=== PATIENT | female | born 1970 | race Caucasian/White ===

== ENCOUNTER 2021-08-29 13:17 | Observation (INO) | payer BC ==
[2021-11-06] MEDS ORDERED: MEFOXIN 2 GM PREMIX** 2 GM/50 ML ML IV SCH (07:00)
[2021-11-06] MEDS ORDERED: Lactated Ringers 1,000 ML IV SCH (07:00)
[2021-11-06 07:27] LABS: Absolute Neutrophil Ct (ANC) 4.02 x10^3/uL (1.4-6.9); Basophil (Absolute #) 0.05 x10^3/uL (0-0.4); Eosinophil % 2.9 % (0.00-5.0); Eosinophil (Absolute #) 0.22 x10^3/uL (0-0.5); Hematocrit 39.1 % (35-47); Hemoglobin 12.9 g/dL (12.0-16.0); Lymphocyte (Absolute #) 2.44 x10^3/uL (1.0-4.6); Lymphocytes % 32.7 % (24.0-44.0); Mean Cell Volume 94.2 fL (78-100); Mean Corpuscular Hemoglobin 31.1 pg (26-32); Mean Platelet Volume 9.3 fL (7.5-11.0); Monocytes % 9.4 % (0.0-12.0); Neutrophil % 53.9 % (36.0-66.0); Platelet Count 312 x10^3/uL (150-450); Red Blood Count 4.15 x10^6/uL (4.1-5.4); Red Cell Distribution Width 12.1 % (11.5-14.0); White Blood Count 7.5 x10^3/uL (4.0-10.5)
[2021-11-06 07:37] LABS: ALBUMIN 3.8 g/dL (3.5-5.0); ALKALINE PHOSPHATASE 81 U/L (38-126); ANION GAP 11.1 MEQ/L (5-15); BLOOD UREA NITROGEN 13 mg/dL (7-17); CHLORIDE 107 mmol/L (98-107); Calcium 8.8 mg/dL (8.4-10.2); Carbon Dioxide 24 mmol/L (22-30); Creatinine 1 0.61 mg/dL (0.52-1.04); EST GLOMERULAR FILTRATION RATE > 60.0 ML/MIN; Glucose 102 mg/dL (74-106); Potassium 4.1 mmol/L (3.5-5.1); SGOT/AST 23 U/L (14-36); SGPT/ALT 18 U/L (0-35); SODIUM 138 mmol/L (137-145); Total Protein 6.6 g/dL (6.3-8.2)
[2021-11-06] MEDS ORDERED: Versed 2 MG/2 ML Injection IV PRN (08:05)
[2021-11-06 08:06] LABS: INFLUENZA A NEGATIVE (NEGATIVE); INFLUENZA B NEGATIVE (NEGATIVE); RESPIRATORY SYNCTIAL VIRUS NEGATIVE (Negative); SARS-CoV-2 Xpert Express NEGATIVE (NEGATIVE)
[2021-11-06 08:31] LABS: ABO TYPING O; Antibody Screen NEGATIVE (NEGATIVE); RH TYPING POSITIVE
[2021-11-06] MEDS ORDERED: SUBLIMAZE 100 MCG/2 ML ONE (11:24)
[2021-11-06] MEDS ORDERED: Zofran 4 MG/2 ML VIAL IV PRN (12:34)
[2021-11-06] MEDS ORDERED: TORAdol 30 mg Injection IV PRN (12:36)
[2021-11-06] MEDS: DILAUDID 1 MG/1ML PCA IV PRN (13:06)
[2021-11-06] MEDS: Mylicon 80MG PO SCH ×2 (14:26→21:48)
[2021-11-06] MEDS: MEFOXIN 2 GM PREMIX** 2 GM/50 ML ML IV SCH ×2 (14:27→19:34)
[2021-11-06] MEDS: Reglan 10 MG/2 ML IV SCH ×2 (14:27→21:48)
[2021-11-06 15:12] LABS: Dipstick done @ ? MAIN LAB
[2021-11-06 15:14] LABS: Appearance CLEAR (CLEAR); Bacteria RARE /HPF (NEGATIVE); Bilirubin NEGATIVE (NEGATIVE); Glucose NEGATIVE (NEGATIVE); Ketones NEGATIVE (NEGATIVE); Nitrite NEGATIVE (NEGATIVE); Ph 7.5 (5-6); Protein,Urine Dip NEGATIVE (Negative); RBC TRACE-INTACT Ery/ul (0-5); Urobilinogen 0.2 mg/dL (0-1); WBC 0-2 /HPF (0-5)
[2021-11-06] MEDS: NON-FORMULARY ITEM PO SCH (19:21)
[2021-11-06 20:32] LABS: Absolute Neutrophil Ct (ANC) 16.51 x10^3/uL (1.4-6.9); Basophil (Absolute #) 0.02 x10^3/uL (0-0.4); Eosinophil (Absolute #) 0 x10^3/uL (0-0.5); Hematocrit 38.8 % (35-47); Hemoglobin 12.6 g/dL (12.0-16.0); Lymphocyte (Absolute #) 0.82 x10^3/uL (1.0-4.6); Lymphocytes % 4.5 % (24.0-44.0); Mean Cell Volume 94.4 fL (78-100); Mean Corpuscular Hemoglobin 30.7 pg (26-32); Mean Corpuscular Hgb Concent. 32.5 g/dL (32-36); Mean Platelet Volume 9.5 fL (7.5-11.0); Monocyte (Absolute #) 0.61 x10^3/uL (0.0-1.3); Monocytes % 3.4 % (0.0-12.0); Neutrophil % 91.6 % (36.0-66.0); Platelet Count 322 x10^3/uL (150-450); Red Blood Count 4.11 x10^6/uL (4.1-5.4); Red Cell Distribution Width 12.1 % (11.5-14.0)
[2021-11-06] MEDS: Lactated Ringers 1,000 ML IV SCH ×2 (21:24→21:39)
[2021-11-06] MEDS: Docusate Sodium 100 MG PO SCH (21:48)
[2021-11-07] MEDS: MEFOXIN 2 GM PREMIX** 2 GM/50 ML ML IV SCH (02:02)
[2021-11-07] MEDS: Lactated Ringers 1,000 ML IV SCH (04:43)
[2021-11-07 05:13] LABS: Hematocrit 35.9 % (35-47); Hemoglobin 11.8 g/dL (12.0-16.0); Mean Cell Volume 94.7 fL (78-100); Mean Corpuscular Hemoglobin 31.1 pg (26-32); Mean Corpuscular Hgb Concent. 32.9 g/dL (32-36); Mean Platelet Volume 9.9 fL (7.5-11.0); Platelet Count 304 x10^3/uL (150-450); Red Blood Count 3.79 x10^6/uL (4.1-5.4); Red Cell Distribution Width 12.1 % (11.5-14.0); White Blood Count 22.2 x10^3/uL (4.0-10.5)
[2021-11-07 05:20] VITALS: O2SAT 97
[2021-11-07 06:21] LABS: ALKALINE PHOSPHATASE 74 U/L (38-126); ANION GAP 8.7 MEQ/L (5-15); BLOOD UREA NITROGEN 8 mg/dL (7-17); CHLORIDE 107 mmol/L (98-107); Calcium 8.4 mg/dL (8.4-10.2); Carbon Dioxide 26 mmol/L (22-30); Creatinine 1 0.58 mg/dL (0.52-1.04); EST GLOMERULAR FILTRATION RATE > 60.0 ML/MIN; Glucose 119 mg/dL (74-106); Potassium 4.3 mmol/L (3.5-5.1); SGOT/AST 23 U/L (14-36); SGPT/ALT 15 U/L (0-35); SODIUM 137 mmol/L (137-145); Total Protein 5.7 g/dL (6.3-8.2)
[2021-11-07 07:10] VITALS: BP 110/58; PULSE 66
--- NOTE | 2021-11-07 07:26 | PCM.NOTE ---
Date and Time: 11/07/21723 Subjective Assessment: pod 1 sp lavh anterior repair pt resting in bed tolerating diet and ambulating well vss afebrile abd; soft incision c/d/intact pelvic; vaginal packing removed with minimal soiling ext; no clubbing cyanosis or edema hgb; 11.8 a/p sp lavh anterior repair leukocytosis dc home today will repeat cbc at 10 am today OBJECTIVE DATA Vital Signs: Vital Signs - 24 hr Temp Pulse Resp BP Pulse Ox 11/07/21 07:10 97.3 F 66 18 110/58 97 11/07/21 05:07 16 97 11/07/21 03:09 96.7 F 64 16 109/56 99 11/06/21 23:36 97.4 F 67 16 118/59 99 11/06/21 21:06 16 11/06/21 19:36 97.9 F 69 16 115/59 97 11/06/21 16:09 98.0 F 74 16 113/55 95 11/06/21 14:58 86 16 119/57 96 11/06/21 14:00 75 16 117/56 99 11/06/21 13:19 97.9 F 64 16 117/58 99 11/06/21 13:06 18 99 11/06/21 13:00 97.9 F 65 16 127/60 99 11/06/21 12:18 97.1 F 63 18 132/67 100 11/06/21 07:36 98.3 F 75 18 132/87 98 Pain Assessment - Last Documented Pain Intensity 2 Intake and Output: Intake & Output 11/04/21 11/05/21 11/06/21 11/07/21 11:59 11:59 11:59 11:59 Intake Total 25 3330 Output Total 400 2300 Balance -375 1030 Weight 83.5 kg 86.8 kg Lab Results: Lab Results-Last 24 Hours 11/06/21 11/06/21 11/06/21 Range/Units 07:25 07:25 07:25 WBC 7.5 (4.0-10.5) x10^3/uL RBC 4.15 (4.1-5.4) x10^6/uL Hgb 12.9 (12.0-16.0) g/dL Hct 39.1 (35-47) % MCV 94.2 (78-100) fL MCH 31.1 (26-32) pg MCHC 33.0 (32-36) g/dL RDW 12.1 (11.5-14.0) % Plt Count 312 (150-450) x10^3/uL MPV 9.3 (7.5-11.0) fL Gran % 53.9 (36.0-66.0) % Immature Gran % (Auto) 0.4 (0.00-0.4) % Nucleat RBC Rel Count 0.0 (0.00-0.1) % Eos # (Auto) 0.22 (0-0.5) x10^3/uL Immature Gran # (Auto) 0.03 (0.00-0.03) x10^3u/L Absolute Lymphs (auto) 2.44 (1.0-4.6) x10^3/uL Absolute Monos (auto) 0.70 (0.0-1.3) x10^3/uL Absolute Nucleated RBC 0.00 (0.00-0.01) x10^3u/L Lymphocytes % 32.7 (24.0-44.0) % Monocytes % 9.4 (0.0-12.0) % Eosinophils % 2.9 (0.00-5.0) % Basophils % 0.7 (0.0-0.4) % Absolute Granulocytes 4.02 (1.4-6.9) x10^3/uL Basophils # 0.05 (0-0.4) x10^3/uL Sodium 138 (137-145) mmol/L Potassium 4.1 (3.5-5.1) mmol/L Chloride 107 (98-107) mmol/L Carbon Dioxide 24 (22-30) mmol/L Anion Gap 11.1 (5-15) MEQ/L BUN 13 (7-17) mg/dL Creatinine 0.61 (0.52-1.04) mg/dL Estimated GFR > 60.0 ML/MIN Glucose 102 (74-106) mg/dL Calcium 8.8 (8.4-10.2) mg/dL Total Bilirubin 0.30 (0.2-1.3) mg/dL AST 23 (14-36) U/L ALT 18 (0-35) U/L Alkaline Phosphatase 81 (38-126) U/L Serum Total Protein 6.6 (6.3-8.2) g/dL Albumin 3.8 (3.5-5.0) g/dL Serum , Qual NEGATIVE (Negative) Urinalys Dipstick Clnc Urine Color (YELLOW) Urine Appearance (CLEAR) Urine pH (5-6) Ur Specific [place] (1.005-1.025) POC Urine Protein Conf (Negative) Urine Ketones (NEGATIVE) Urine Nitrite (NEGATIVE) Urine Bilirubin (NEGATIVE) Urine Urobilinogen (0-1) mg/dL Urine Leukocytes (NEGATIVE) Urine WBC (Auto) (0-5) /HPF Urine RBC (Auto) (0-2) /HPF U Epithel Cells (Auto) (FEW) /HPF Urine Bacteria (Auto) (NEGATIVE) /HPF Urine RBC (0-5) Raffy/ul Urine Glucose (NEGATIVE) mg/dL Influenza Type A Ag (NEGATIVE) Influenza Type B Ag (NEGATIVE) RSV (PCR) (Negative) SARS-CoV-2 (PCR) (NEGATIVE) ABO Group Rh Factor Antibody Screen (NEGATIVE) 11/06/21 11/06/21 11/06/21 Range/Units 07:25 07:25 09:32 WBC (4.0-10.5) x10^3/uL RBC (4.1-5.4) x10^6/uL Hgb (12.0-16.0) g/dL Hct (35-47) % MCV (78-100) fL MCH (26-32) pg MCHC (32-36) g/dL RDW (11.5-14.0) % Plt Count (150-450) x10^3/uL MPV (7.5-11.0) fL Gran % (36.0-66.0) % Immature Gran % (Auto) (0.00-0.4) % Nucleat RBC Rel Count (0.00-0.1) % Eos # (Auto) (0-0.5) x10^3/uL Immature Gran # (Auto) (0.00-0.03) x10^3u/L Absolute Lymphs (auto) (1.0-4.6) x10^3/uL Absolute Monos (auto) (0.0-1.3) x10^3/uL Absolute Nucleated RBC (0.00-0.01) x10^3u/L Lymphocytes % (24.0-44.0) % Monocytes % (0.0-12.0) % Eosinophils % (0.00-5.0) % Basophils % (0.0-0.4) % Absolute Granulocytes (1.4-6.9) x10^3/uL Basophils # (0-0.4) x10^3/uL Sodium (137-145) mmol/L Potassium (3.5-5.1) mmol/L Chloride (98-107) mmol/L Carbon Dioxide (22-30) mmol/L Anion Gap (5-15) MEQ/L BUN (7-17) mg/dL Creatinine (0.52-1.04) mg/dL Estimated GFR ML/MIN Glucose (74-106) mg/dL Calcium (8.4-10.2) mg/dL Total Bilirubin (0.2-1.3) mg/dL AST (14-36) U/L ALT (0-35) U/L Alkaline Phosphatase (38-126) U/L Serum Total Protein (6.3-8.2) g/dL Albumin (3.5-5.0) g/dL Serum , Qual (Negative) Urinalys Dipstick Clnc MAIN LAB Urine Color YELLOW (YELLOW) Urine Appearance CLEAR (CLEAR) Urine pH 7.5 (5-6) Ur Specific [place] 1.020 (1.005-1.025) POC Urine Protein Conf NEGATIVE (Negative) Urine Ketones NEGATIVE (NEGATIVE) Urine Nitrite NEGATIVE (NEGATIVE) Urine Bilirubin NEGATIVE (NEGATIVE) Urine Urobilinogen 0.2 (0-1) mg/dL Urine Leukocytes NEGATIVE (NEGATIVE) Urine WBC (Auto) 0-2 (0-5) /HPF Urine RBC (Auto) 6-10 (0-2) /HPF U Epithel Cells (Auto) NONE (FEW) /HPF Urine Bacteria (Auto) RARE (NEGATIVE) /HPF Urine RBC TRACE-INTACT (0-5) Raffy/ul Urine Glucose NEGATIVE (NEGATIVE) mg/dL Influenza Type A Ag NEGATIVE (NEGATIVE) Influenza Type B Ag NEGATIVE (NEGATIVE) RSV (PCR) NEGATIVE (Negative) SARS-CoV-2 (PCR) NEGATIVE (NEGATIVE) ABO Group O Rh Factor POSITIVE Antibody Screen NEGATIVE (NEGATIVE) 07/11/07/21 11/07/21 Range/Units 20:10 05:15 05:15 WBC 18.0 H 22.2 H (4.0-10.5) x10^3/uL RBC 4.11 3.79 L (4.1-5.4) x10^6/uL Hgb 12.6 11.8 L (12.0-16.0) g/dL Hct 38.8 35.9 (35-47) % MCV 94.4 94.7 (78-100) fL MCH 30.7 31.1 (26-32) pg MCHC 32.5 32.9 (32-36) g/dL RDW 12.1 12.1 (11.5-14.0) % Plt Count 322 304 (150-450) x10^3/uL MPV 9.5 9.9 (7.5-11.0) fL Gran % 91.6 H (36.0-66.0) % Immature Gran % (Auto) 0.4 (0.00-0.4) % Nucleat RBC Rel Count 0.0 (0.00-0.1) % Eos # (Auto) 0 (0-0.5) x10^3/uL Immature Gran # (Auto) 0.08 H (0.00-0.03) x10^3u/L Absolute Lymphs (auto) 0.82 L (1.0-4.6) x10^3/uL Absolute Monos (auto) 0.61 (0.0-1.3) x10^3/uL Absolute Nucleated RBC 0.00 (0.00-0.01) x10^3u/L Lymphocytes % 4.5 L (24.0-44.0) % Monocytes % 3.4 (0.0-12.0) % Eosinophils % 0.0 (0.00-5.0) % Basophils % 0.1 (0.0-0.4) % Absolute Granulocytes 16.51 H (1.4-6.9) x10^3/uL Basophils # 0.02 (0-0.4) x10^3/uL Sodium 137 (137-145) mmol/L Potassium 4.3 (3.5-5.1) mmol/L Chloride 107 (98-107) mmol/L Carbon Dioxide 26 (22-30) mmol/L Anion Gap 8.7 (5-15) MEQ/L BUN 8 (7-17) mg/dL Creatinine 0.58 (0.52-1.04) mg/dL Estimated GFR > 60.0 ML/MIN Glucose 119 H (74-106) mg/dL Calcium 8.4 (8.4-10.2) mg/dL Total Bilirubin 0.20 (0.2-1.3) mg/dL AST 23 (14-36) U/L ALT 15 (0-35) U/L Alkaline Phosphatase 74 (38-126) U/L Serum Total Protein 5.7 L (6.3-8.2) g/dL Albumin 3.0 L (3.5-5.0) g/dL Serum , Qual (Negative) Urinalys Dipstick Clnc Urine Color (YELLOW) Urine Appearance (CLEAR) Urine pH (5-6) Ur Specific [place] (1.005-1.025) POC Urine Protein Conf (Negative) Urine Ketones (NEGATIVE) Urine Nitrite (NEGATIVE) Urine Bilirubin (NEGATIVE) Urine Urobilinogen (0-1) mg/dL Urine Leukocytes (NEGATIVE) Urine WBC (Auto) (0-5) /HPF Urine RBC (Auto) (0-2) /HPF U Epithel Cells (Auto) (FEW) /HPF Urine Bacteria (Auto) (NEGATIVE) /HPF Urine RBC (0-5) Raffy/ul Urine Glucose (NEGATIVE) mg/dL Influenza Type A Ag (NEGATIVE) Influenza Type B Ag (NEGATIVE) RSV (PCR) (Negative) SARS-CoV-2 (PCR) (NEGATIVE) ABO Group Rh Factor Antibody Screen (NEGATIVE) Assessment/Plan (1) S/P laparoscopic assisted vaginal hysterectomy (LAVH) Current Visit: Yes Status: Acute Code(s): Z90.710 - ACQUIRED ABSENCE OF BOTH CERVIX AND UTERUS (2) Status post anterior colporrhaphy Current Visit: Yes Status: Acute Code(s): Z98.890 - OTHER SPECIFIED POSTPROCEDURAL STATES
--- NOTE | 2021-11-07 07:35 | PCM.DS ---
Discharge Summary Date of Admission: 11/06/21 06:52 Admitting Physician: PRATIMA TIRADO DO Primary Care Provider: MURPHY CROOKS Allergies Allergies No Known Drug Allergies Allergy (Verified 11/06/21 07:09) Hospital Summary - Hospital Course Hospital Course: pt admitted on november 06 for undergoing lavh anterior repair secondary to cystocele, severe dysplasia, and uterine prolapse and underwent procedure without complication. during postop period did well with stable hgb at 11.8. pt at this time stable for discharge with fu in office in 2 wks for postop evaluation. pt able to ambulate and tolerate diet. all questions answered to her satisfaction and was given norco for pain management and augmentin bid 5 days for prophylaxis. - Vitals & Intake/Output Vital Signs: Vital Signs Temperature 97.3 F 11/07/21 07:10 Pulse Rate 66 11/07/21 07:10 Respiratory Rate 18 11/07/21 07:10 Blood Pressure 110/58 11/07/21 07:10 O2 Sat by Pulse Oximetry 97 11/07/21 07:10 Intake & Output: Intake & Output 11/04/21 11/05/21 11/06/21 11/07/21 11:59 11:59 11:59 11:59 Intake Total 25 3330 Output Total 400 2300 Balance -375 1030 Weight 83.5 kg 86.8 kg - Lab Result Diagrams: 11/07/21 05:15 11/07/21 05:15 Lab Results-Last 24 Hrs: Lab Results-Last 24 Hours 11/06/21 11/06/21 11/06/21 Range/Units 07:25 07:25 07:25 WBC 7.5 (4.0-10.5) x10^3/uL RBC 4.15 (4.1-5.4) x10^6/uL Hgb 12.9 (12.0-16.0) g/dL Hct 39.1 (35-47) % MCV 94.2 (78-100) fL MCH 31.1 (26-32) pg MCHC 33.0 (32-36) g/dL RDW 12.1 (11.5-14.0) % Plt Count 312 (150-450) x10^3/uL MPV 9.3 (7.5-11.0) fL Gran % 53.9 (36.0-66.0) % Immature Gran % (Auto) 0.4 (0.00-0.4) % Nucleat RBC Rel Count 0.0 (0.00-0.1) % Eos # (Auto) 0.22 (0-0.5) x10^3/uL Immature Gran # (Auto) 0.03 (0.00-0.03) x10^3u/L Absolute Lymphs (auto) 2.44 (1.0-4.6) x10^3/uL Absolute Monos (auto) 0.70 (0.0-1.3) x10^3/uL Absolute Nucleated RBC 0.00 (0.00-0.01) x10^3u/L Lymphocytes % 32.7 (24.0-44.0) % Monocytes % 9.4 (0.0-12.0) % Eosinophils % 2.9 (0.00-5.0) % Basophils % 0.7 (0.0-0.4) % Absolute Granulocytes 4.02 (1.4-6.9) x10^3/uL Basophils # 0.05 (0-0.4) x10^3/uL Sodium 138 (137-145) mmol/L Potassium 4.1 (3.5-5.1) mmol/L Chloride 107 (98-107) mmol/L Carbon Dioxide 24 (22-30) mmol/L Anion Gap 11.1 (5-15) MEQ/L BUN 13 (7-17) mg/dL Creatinine 0.61 (0.52-1.04) mg/dL Estimated GFR > 60.0 ML/MIN Glucose 102 (74-106) mg/dL Calcium 8.8 (8.4-10.2) mg/dL Total Bilirubin 0.30 (0.2-1.3) mg/dL AST 23 (14-36) U/L ALT 18 (0-35) U/L Alkaline Phosphatase 81 (38-126) U/L Serum Total Protein 6.6 (6.3-8.2) g/dL Albumin 3.8 (3.5-5.0) g/dL Serum , Qual NEGATIVE (Negative) Urinalys Dipstick Clnc Urine Color (YELLOW) Urine Appearance (CLEAR) Urine pH (5-6) Ur Specific [place] (1.005-1.025) POC Urine Protein Conf (Negative) Urine Ketones (NEGATIVE) Urine Nitrite (NEGATIVE) Urine Bilirubin (NEGATIVE) Urine Urobilinogen (0-1) mg/dL Urine Leukocytes (NEGATIVE) Urine WBC (Auto) (0-5) /HPF Urine RBC (Auto) (0-2) /HPF U Epithel Cells (Auto) (FEW) /HPF Urine Bacteria (Auto) (NEGATIVE) /HPF Urine RBC (0-5) Raffy/ul Urine Glucose (NEGATIVE) mg/dL Influenza Type A Ag (NEGATIVE) Influenza Type B Ag (NEGATIVE) RSV (PCR) (Negative) SARS-CoV-2 (PCR) (NEGATIVE) ABO Group Rh Factor Antibody Screen (NEGATIVE) 11/06/21 11/06/21 11/06/21 Range/Units 07:25 07:25 09:32 WBC (4.0-10.5) x10^3/uL RBC (4.1-5.4) x10^6/uL Hgb (12.0-16.0) g/dL Hct (35-47) % MCV (78-100) fL MCH (26-32) pg MCHC (32-36) g/dL RDW (11.5-14.0) % Plt Count (150-450) x10^3/uL MPV (7.5-11.0) fL Gran % (36.0-66.0) % Immature Gran % (Auto) (0.00-0.4) % Nucleat RBC Rel Count (0.00-0.1) % Eos # (Auto) (0-0.5) x10^3/uL Immature Gran # (Auto) (0.00-0.03) x10^3u/L Absolute Lymphs (auto) (1.0-4.6) x10^3/uL Absolute Monos (auto) (0.0-1.3) x10^3/uL Absolute Nucleated RBC (0.00-0.01) x10^3u/L Lymphocytes % (24.0-44.0) % Monocytes % (0.0-12.0) % Eosinophils % (0.00-5.0) % Basophils % (0.0-0.4) % Absolute Granulocytes (1.4-6.9) x10^3/uL Basophils # (0-0.4) x10^3/uL Sodium (137-145) mmol/L Potassium (3.5-5.1) mmol/L Chloride (98-107) mmol/L Carbon Dioxide (22-30) mmol/L Anion Gap (5-15) MEQ/L BUN (7-17) mg/dL Creatinine (0.52-1.04) mg/dL Estimated GFR ML/MIN Glucose (74-106) mg/dL Calcium (8.4-10.2) mg/dL Total Bilirubin (0.2-1.3) mg/dL AST (14-36) U/L ALT (0-35) U/L Alkaline Phosphatase (38-126) U/L Serum Total Protein (6.3-8.2) g/dL Albumin (3.5-5.0) g/dL Serum , Qual (Negative) Urinalys Dipstick Clnc MAIN LAB Urine Color YELLOW (YELLOW) Urine Appearance CLEAR (CLEAR) Urine pH 7.5 (5-6) Ur Specific [place] 1.020 (1.005-1.025) POC Urine Protein Conf NEGATIVE (Negative) Urine Ketones NEGATIVE (NEGATIVE) Urine Nitrite NEGATIVE (NEGATIVE) Urine Bilirubin NEGATIVE (NEGATIVE) Urine Urobilinogen 0.2 (0-1) mg/dL Urine Leukocytes NEGATIVE (NEGATIVE) Urine WBC (Auto) 0-2 (0-5) /HPF Urine RBC (Auto) 6-10 (0-2) /HPF U Epithel Cells (Auto) NONE (FEW) /HPF Urine Bacteria (Auto) RARE (NEGATIVE) /HPF Urine RBC TRACE-INTACT (0-5) Raffy/ul Urine Glucose NEGATIVE (NEGATIVE) mg/dL Influenza Type A Ag NEGATIVE (NEGATIVE) Influenza Type B Ag NEGATIVE (NEGATIVE) RSV (PCR) NEGATIVE (Negative) SARS-CoV-2 (PCR) NEGATIVE (NEGATIVE) ABO Group O Rh Factor POSITIVE Antibody Screen NEGATIVE (NEGATIVE) 11/06/21 11/07/21 11/07/21 Range/Units 20:10 05:15 05:15 WBC 18.0 H 22.2 H (4.0-10.5) x10^3/uL RBC 4.11 3.79 L (4.1-5.4) x10^6/uL Hgb 12.6 11.8 L (12.0-16.0) g/dL Hct 38.8 35.9 (35-47) % MCV 94.4 94.7 (78-100) fL MCH 30.7 31.1 (26-32) pg MCHC 32.5 32.9 (32-36) g/dL RDW 12.1 12.1 (11.5-14.0) % Plt Count 322 304 (150-450) x10^3/uL MPV 9.5 9.9 (7.5-11.0) fL Gran % 91.6 H (36.0-66.0) % Immature Gran % (Auto) 0.4 (0.00-0.4) % Nucleat RBC Rel Count 0.0 (0.00-0.1) % Eos # (Auto) 0 (0-0.5) x10^3/uL Immature Gran # (Auto) 0.08 H (0.00-0.03) x10^3u/L Absolute Lymphs (auto) 0.82 L (1.0-4.6) x10^3/uL Absolute Monos (auto) 0.61 (0.0-1.3) x10^3/uL Absolute Nucleated RBC 0.00 (0.00-0.01) x10^3u/L Lymphocytes % 4.5 L (24.0-44.0) % Monocytes % 3.4 (0.0-12.0) % Eosinophils % 0.0 (0.00-5.0) % Basophils % 0.1 (0.0-0.4) % Absolute Granulocytes 16.51 H (1.4-6.9) x10^3/uL Basophils # 0.02 (0-0.4) x10^3/uL Sodium 137 (137-145) mmol/L Potassium 4.3 (3.5-5.1) mmol/L Chloride 107 (98-107) mmol/L Carbon Dioxide 26 (22-30) mmol/L Anion Gap 8.7 (5-15) MEQ/L BUN 8 (7-17) mg/dL Creatinine 0.58 (0.52-1.04) mg/dL Estimated GFR > 60.0 ML/MIN Glucose 119 H (74-106) mg/dL Calcium 8.4 (8.4-10.2) mg/dL Total Bilirubin 0.20 (0.2-1.3) mg/dL AST 23 (14-36) U/L ALT 15 (0-35) U/L Alkaline Phosphatase 74 (38-126) U/L Serum Total Protein 5.7 L (6.3-8.2) g/dL Albumin 3.0 L (3.5-5.0) g/dL Serum , Qual (Negative) Urinalys Dipstick Clnc Urine Color (YELLOW) Urine Appearance (CLEAR) Urine pH (5-6) Ur Specific [place] (1.005-1.025) POC Urine Protein Conf (Negative) Urine Ketones (NEGATIVE) Urine Nitrite (NEGATIVE) Urine Bilirubin (NEGATIVE) Urine Urobilinogen (0-1) mg/dL Urine Leukocytes (NEGATIVE) Urine WBC (Auto) (0-5) /HPF Urine RBC (Auto) (0-2) /HPF U Epithel Cells (Auto) (FEW) /HPF Urine Bacteria (Auto) (NEGATIVE) /HPF Urine RBC (0-5) Raffy/ul Urine Glucose (NEGATIVE) mg/dL Influenza Type A Ag (NEGATIVE) Influenza Type B Ag (NEGATIVE) RSV (PCR) (Negative) SARS-CoV-2 (PCR) (NEGATIVE) ABO Group Rh Factor Antibody Screen (NEGATIVE) Final Diagnosis/Problem List - Final Discharge Diagnosis/Problem (1) S/P laparoscopic assisted vaginal hysterectomy (LAVH) Current Visit: Yes Status: Acute Code(s): Z90.710 - ACQUIRED ABSENCE OF BOTH CERVIX AND UTERUS (2) Status post anterior colporrhaphy Current Visit: Yes Status: Acute Code(s): Z98.890 - OTHER SPECIFIED POSTPROCEDURAL STATES - Discharge Disposition: Home, Self-Care Condition: Stable Prescriptions: New Amox Tr/Potass Clav. 875 mg [Augmentin 875-125 Tablet] 875 mg PO BID #10 tablet Hydrocodone/Acetaminophen [Hydrocodone-Acetamin 5-325 mg] 1 tab PO Q6HPRN PRN #20 tablet MDD 4 PRN Reason: Pain No Action Levothyroxine Sodium [Synthroid] 137 mcg PO DAILY Dextroamphetamine/Amphetamine [Adderall 15 mg Tablet] 30 mg PO DAILY Follow up with: VALERIY,MURPHY HE, [facility] [Primary Care Provider] - PRATIMA TIRADO DO [ACTIVE STAFF] - 2 weeks (no heavy lifting nothing per vagina for 6 wks keep incision clean and dry call anytime for any issues that may arise)
[2021-11-07] MEDS: Reglan 10 MG/2 ML IV SCH (07:41)
[2021-11-07] MEDS: NON-FORMULARY ITEM PO SCH (07:41)
[2021-11-07] MEDS: Mylicon 80MG PO SCH (07:41)
[2021-11-07] MEDS ORDERED: ENOXAPARIN SODIUM SQ SCH (08:00)
[2021-11-07] MEDS: Docusate Sodium 100 MG PO SCH (09:17)
--- NOTE | 2021-11-07 09:31 | OP ---
SURGERY DATE/TIME: 11/06/2021 0900 PREOPERATIVE DIAGNOSES: 1) Cystocele. 2) Uterine prolapse. 3) Severe cervical dysplasia. POSTOPERATIVE DIAGNOSES: 1) Cystocele. 2) Uterine prolapse. 3) Severe cervical dysplasia. PROCEDURE: Laparoscopic-assisted vaginal hysterectomy with anterior repair. SURGEON: Federico Song D.O. PULP MACHINE OPERATOR: Mario Alberto Isidro and Jolene Bernal, surgical techs. ANESTHESIA: General. ESTIMATED BLOOD LOSS: 50 cc. COMPLICATIONS: None. INDICATIONS: The risks and benefits, indications, alternatives of the procedure were reviewed with the patient prior to the procedure. The patient understood the risk of infection, bleeding, bowel injury, bladder injury, ureteral injury, uterine perforation, pelvic infection, thromboembolic disorder associated with this surgery and desires to have the surgery as a possible means to alleviate her current medical condition. DESCRIPTION OF PROCEDURE AND FINDINGS: At this point the patient is taken to the operating room, given general sedation, placed in dorsal lithotomy position, prepped and draped in the usual sterile fashion. A weighted speculum is then placed in the patient's vagina and the anterior lip of the cervix is grasped with a single tooth tenaculum. Endocervical dilators were advanced through the endocervical canal as a means to dilate the cervix and uterine manipulator was then placed in through endocervical canal as a means to manipulate the uterus. Attention was then turned to the patient's abdomen where a 5 mm skin incision is made in the umbilical fold where a 5 mm trocar and sleeve were advanced under direct visualization where pneumoperitoneum was obtained with 4 liters of CO2 gas. An additional incision was made in the left middle quadrant region where a 5 mm trocar and sleeve were advanced under direct visualization. An additional incision was made at the right middle quadrant where a 5 mm trocar and sleeve were advanced under direct visualization as well. A survey of the patient's pelvis and abdomen revealed entirely normal anatomy. There were no gross abnormalities that were located. From this point the uterus is elevated and pulled to one side and LigaSure was used to clamp, coagulate and cut the left utero-ovarian ligament where it is clamped, coagulated and cut taken through the round ligament towards the uterine vasculature where it to was clamped, coagulated and cut in two contiguous regions and a bladder flap developed on its side. The same procedure was performed on the right side where the right utero-ovarian ligament was clamped, coagulated and cut taken down to the round ligament towards the uterine vasculature where it too was clamped, coagulated and cut in two contiguous regions and a bladder flap developed on its side. From this point after completion of the top portion, the procedure was proceeded down to the vaginal region where attention was then turned to the vaginal region. At this point a weighted speculum was then placed into the vagina and the cervix grasped with single tooth tenaculum. The cervix injected circumferentially with 1% lidocaine with epinephrine. The cervix is then circumferentially incised with a scalpel and the bladder dissected off the pubovesical cervical fascia anteriorly with a sponge stick and Metzenbaum scissors. The anterior cul-de-sac was then entered sharply. The same procedure was performed posteriorly and the posterior cul-de-sac entered sharply. At this point Sarwat clamps were placed on the uterosacral ligament on both sides and these were then transfixed and suture ligated with 0 Vicryl suture. Hemostasis was assured. The cardinal ligaments were then clamped on both sides, transfixed and suture ligated in a similar fashion. Uterine arteries and the broad ligaments were then clamped with Sarwat clamps transected and suture ligated on both sides. Excellent hemostasis was visualized. Both cornua were clamped with Sarwat clamps, transected and the uterus delivered at this point. From this point, the vaginal cuff angles were closed with figure-of-8 sutures of 0 Vicryl on both sides and transfixed to the ipsilateral cardinal ligament uterosacral ligament. The remainder of the vaginal cuff was closed with a figure-of-8 stitches of 0 Vicryl in interrupted fashion. At this point the anterior repair proceeded. Approximately 8 cc of lidocaine with epinephrine was used to infiltrate the anterior vaginal mucosa in the midline. A small incision was made in the vaginal mucosa starting just 1 cm distally from the urethra and at this point small incisions were then used to dissect the mucosa off of the cystocele and cut the vaginal mucosa in the midline. The cut edges were held and splayed laterally with a series of Allis clamps. The bladder was dissected away along the lateral edges with a combination of sharp and blunt dissection exposing the vesicovaginal space. A series of 2-0 Vicryl interrupted sutures were then placed sequentially along the lateral folds of the vesicovaginal space and brought together to tie the bladder back while simultaneously bringing the lateral vaginal tissue together. The excess vaginal mucosa was then trimmed. The vagina was then closed with a running locked 0 Vicryl suture. From this point, a second look was obtained by looking through the laparoscope and visualizing there was no bleeding that was noted within the region. At this point all instruments were removed from the patient's abdominal region and the incisions were closed with 4-0 Monocryl suture. The patient was taken out of the dorsal lateral position, was then taken out of anesthesia and then taken to the recovery room in stable condition. All instruments and laps were accounted for x2.
[2021-11-07] MEDS ORDERED: SYNTHROID 112 MCG PO SCH (10:00)
[2021-11-07] MEDS ORDERED: DEXTROAMPHETAMINE PO SCH (10:00)
[2021-11-07] MEDS ORDERED: SYNTHROID 125 MCG PO SCH (10:00)
[2021-11-07] MEDS ORDERED: AMPHETAMINE PO SCH (10:00)
[2021-11-07] MEDS ORDERED: SYNTHROID 25 MCG PO SCH (10:00)
[2021-11-07 10:20] LABS: Absolute Neutrophil Ct (ANC) 14.04 x10^3/uL (1.4-6.9); Basophil (Absolute #) 0.05 x10^3/uL (0-0.4); Eosinophil % 0.3 % (0.00-5.0); Eosinophil (Absolute #) 0.06 x10^3/uL (0-0.5); Hematocrit 38.1 % (35-47); Hemoglobin 12.4 g/dL (12.0-16.0); Lymphocyte (Absolute #) 2.99 x10^3/uL (1.0-4.6); Mean Cell Volume 95.5 fL (78-100); Mean Corpuscular Hemoglobin 31.1 pg (26-32); Mean Corpuscular Hgb Concent. 32.5 g/dL (32-36); Mean Platelet Volume 9.2 fL (7.5-11.0); Monocyte (Absolute #) 1.45 x10^3/uL (0.0-1.3); Monocytes % 7.7 % (0.0-12.0); Neutrophil % 75.1 % (36.0-66.0); Platelet Count 319 x10^3/uL (150-450); Red Blood Count 3.99 x10^6/uL (4.1-5.4); Red Cell Distribution Width 12.2 % (11.5-14.0); White Blood Count 18.7 x10^3/uL (4.0-10.5)
[2021-11-07] MEDS: DILAUDID 1 MG/1ML PCA IV PRN (10:41)
== END 2021-11-07 11:07 | disposition home or self-care (01) ==
LOC: MED SURG 11-06 06:52 → UNDOADMOB 11-06 06:52 → EDSTATUS 11-06 13:35 → UNDODISOB 11-07 11:07
PROVIDERS: ADMIT Obstetrics & Gynecology; ATTEND Obstetrics & Gynecology
DX: N81.4 Uterovaginal prolapse, unspecified (principal); D06.9 Carcinoma in situ of cervix, unspecified; Z20.828 Contact with and (suspected) exposure to other viral communicable diseases; Z79.899 Other long term (current) drug therapy
CPT/HCPCS: 0241U; 36415; 58552; 64488; 76937; 80053; 81001; 84703; 85025; 85027; 86850; 86900; 86901; 87086; G0378; 76942; J0694; J1170; J1650; J2250; J3010; A9270-GY